=== PATIENT | male | born 1995 | race African-American/Black ===

== ENCOUNTER 2016-10-27 23:23 | Emergency (ER) | payer MEDICAID, OTHER ==
[2016-10-27 23:33] VITALS: BP 155/89
[2016-10-28] MEDS ORDERED: Ketorolac INJ* 60 MG/2 ML VIAL IM ONE (00:42)
[2016-10-28] MEDS ORDERED: Clindamycin CAP* 150 MG PO ONE ×2 (01:21)
[2016-10-28] MEDS ORDERED: Ibuprofen TAB* 600 MG PO ONE (01:22)
== END 2016-10-28 01:44 | disposition home or self-care (01) ==
LOC: ED 23:23
DX: K04.7 Periapical abscess without sinus (principal)
CPT/HCPCS: 96372; 99282; A9270-GY

== ENCOUNTER 2017-09-27 17:42 | Emergency (ER) | payer SELFPAY ==
[2017-09-27] MEDS ORDERED: Oseltamivir CAP* 75 MG CAP PO ONE (18:18)
--- NOTE | 2017-09-27 18:19 | ED ---
Influenza-Like Illness - HPI Summary HPI Summary: 22-year-old male presents with cough for the past 2 days. He states everyone in the house has been diagnosed with flu. He has occasional fevers. He has been taking Tylenol. He denies any bowel pain. He denies any nausea vomiting or diarrhea. He denies any chest pain or shortness breath. He admits to sinus congestion. He has no medical conditions. - History of Current Complaint Chief Complaint: EDFluSymptoms Time Seen by Provider: 09/27/17 18:18 - Allergy/Home Medications Allergies/Adverse Reactions: Allergies Allergy/AdvReac Type Severity Reaction Status Date / Time No Known Allergies Allergy Verified 07/31/16 16:11 PMH/Surg Hx/FS Hx/Imm Hx Endocrine/Hematology History: Denies: Hx Anticoagulant Therapy, Hx Blood Disorders, Hx Diabetes Cardiovascular History: Denies: Hx Hypertension, Hx Pacemaker/ICD History: Denies: Hx Renal Disease Sensory History: Denies: Hx Hearing Aid Psychiatric History: Denies: Hx Panic Disorder - Surgical History Surgery Procedure, Year, and Place: none Infectious Disease History: No Infectious Disease History: Denies: Traveled Outside the [place] in Last 30 Days - Family History Known Family History: Positive: Other - herniated disc - mother - Social History Alcohol Use: Occasionally Substance Use Type: Reports: None Smoking Status (MU): Current Every Day Smoker Type: Cigarettes Amount Used/How Often: 1/2 PPD Review of Systems Positive: Fever Negative: Sore Throat Negative: Chest Pain Positive: Cough. Negative: Shortness Of Breath All Other Systems Reviewed And Are Negative: Yes Physical Exam Triage Information Reviewed: Yes Vital Signs On Initial Exam: Initial Vitals Temp Pulse Resp BP Pulse Ox 97.6 F 84 16 147/91 99 09/27/17 17:44 09/27/17 17:44 09/27/17 17:44 09/27/17 17:44 09/27/17 17:44 Vital Signs Reviewed: Yes Appearance: Positive: Well-Appearing Skin: Positive: Warm, Dry Head/Face: Positive: Normal Head/Face Inspection Eyes: Positive: Normal, EOMI, LEVI, Conjunctiva Clear ENT: Positive: Normal ENT inspection, Pharynx normal, TMs normal Neck: Positive: Supple, Nontender, No Lymphadenopathy Respiratory/Lung Sounds: Positive: Clear to Auscultation, Breath Sounds Present Cardiovascular: Positive: Normal, RRR Abdomen Description: Positive: Nontender, Soft Bowel Sounds: Positive: Present Musculoskeletal: Positive: Normal Neurological: Positive: Normal Psychiatric: Positive: Normal Diagnostics - Vital Signs Vital Signs Temp Pulse Resp BP Pulse Ox 09/27/17 17:44 97.6 F 84 16 147/91 99 - Laboratory Lab Statement: Any lab studies that have been ordered have been reviewed, and results considered in the medical decision making process. Flu Symptom Course/Dx - Course Course Of Treatment: 22-year-old male presents with cough for the past 2 days. He states everyone in the house has been diagnosed with flu. He has occasional fevers. He has been taking Tylenol. He denies any bowel pain. He denies any nausea vomiting or diarrhea. He denies any chest pain or shortness breath. He admits to sinus congestion. On exam lungs clear to auscultation. Influenza A positive. Will treat with Tamiflu. Patient understands and agrees plan. - Diagnoses Differential Diagnosis/HQI/PQRI: Positive: Influenza, Pneumonia, Upper Respiratory Infection Provider Diagnoses: Influenza Discharge - Discharge Plan Condition: Good Disposition: HOME Prescriptions: Oseltamivir CAP* [Tamiflu CAP*] 75 mg PO BID #4 cap Patient Education Materials: Influenza (ED) Forms: *Work Release Referrals: Mahendra Johns MD [Primary Care Provider] - Additional Instructions: Take Tamiflu twice for 5 days first dose given in ED Take Tylenol and ibuprofen for muscle aches and fever every 6 hours Saline rinse can be used multiple times a day for nasal congestion Use humidifier in room or place bowls of warm water around room for cough Try to drink fluids every hour and eat a small snack every 3 hours Return to ED if develop any new or worsening symptoms
[2017-09-27 18:30] VITALS: BP 143/87
== END 2017-09-27 18:28 | disposition home or self-care (01) ==
LOC: ED 17:42
DX: J11.1 Influenza due to unidentified influenza virus with other respiratory manifestations (principal); F17.210 Nicotine dependence, cigarettes, uncomplicated
CPT/HCPCS: 87502; 99282

== ENCOUNTER 2019-03-04 01:31 | Emergency (ER) | payer MEDICAID, OTHER ==
[2019-03-04] MEDS ORDERED: Tetan/Diph/Pertus SYR(Tdap)* 0.5 ML SYR(BOOSTRIX) use SYR IM ONE (02:15)
[2019-03-04] MEDS ORDERED: Morphine 4 MG/ML VIAL (1 ml) 4 MG/ML VIAL IV ONE (02:15)
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
[2019-03-04] MEDS ORDERED: HYDROmorphone INJ1* 1 MG/ML SYRINGE IV SLOW PU ONE (04:05)
[2019-03-04] MEDS ORDERED: Metoclopramide IV* 5 MG/ML 2 ML VIAL IV SLOW PU ONE (04:06)
[2019-03-04] MEDS ORDERED: Bacitracin OINTMENT* 0.5% 0.5 oz TUBE ONE (06:15)
[2019-03-04] MEDS ORDERED: Bacitracin OINTMENT* 0.5% 0.5 oz TUBE TOPICAL ONE (06:16)
[2019-03-04 06:21] VITALS: BP 128/73
== END 2019-03-04 06:31 | disposition home or self-care (01) ==
LOC: ED 01:31
DX: S62.231A Other displaced fracture of base of first metacarpal bone, right hand, initial encounter for closed fracture (principal); S52.501A Unspecified fracture of the lower end of right radius, initial encounter for closed fracture; V23.4XXA Motorcycle driver injured in collision with car, pick-up truck or van in traffic accident, initial encounter; Y92.410 Unspecified street and highway as the place of occurrence of the external cause; F17.210 Nicotine dependence, cigarettes, uncomplicated; Z23 Encounter for immunization; R91.1 Solitary pulmonary nodule
CPT/HCPCS: 70450; 71250; 72125; 74176; 90471; 90715; 96374; 96375; 99284; A9270-GY; J1170; J2270; J2765